=== PATIENT | female | born 1995 | race Two or more races ===

== ENCOUNTER 2018-11-27 13:35 | Emergency (ER) | payer OTHER ==
[~2018-11-27] VITALS: Ht 170.2 cm; Wt 61.7 kg
[2018-11-27] MEDS ORDERED: Permethrin60 GM TOP (13:58)
== END 2018-11-27 14:08 | disposition home or self-care (01) ==
LOC: ER 13:35
DX: Z20.7 Contact with and (suspected) exposure to pediculosis, acariasis and other infestations (principal)
CPT/HCPCS: 99282